=== PATIENT | female | born 1985 | race Hispanic/Latino ===

== ENCOUNTER 2018-06-10 19:48 | Emergency (ER) | payer OTHER ==
[~2018-06-10] VITALS: Ht 160 cm; Wt 68.0 kg
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
== END 2018-06-10 22:00 | disposition home or self-care (01) ==
LOC: FSED 19:48
DX: M54.2 Cervicalgia (principal); M25.511 Pain in right shoulder; S40.011A Contusion of right shoulder, initial encounter; S10.83XA Contusion of other specified part of neck, initial encounter; Y04.0XXA Assault by unarmed brawl or fight, initial encounter; Y92.488 Other paved roadways as the place of occurrence of the external cause
CPT/HCPCS: 72040; 99283